=== PATIENT | female | born 1995 | race Caucasian/White ===

== ENCOUNTER 2017-12-17 07:26 | Emergency (ER) | payer OTHER ==
[~2017-12-17] VITALS: Ht 167.6 cm; Wt 68.2 kg
[2017-12-17 08:07] VITALS: BP 112/67
[2017-12-17] MEDS ORDERED: KETOROLAC TROMETHAMINE 10 MG TAB PO ONE (09:00)
[2017-12-17] MEDS ORDERED: ACYCLOVIR 15 GM OINT TP ONE (09:00)
[2017-12-17] MEDS ORDERED: TRAMADOL HCL 50 MG TAB PO ONE (09:00)
[2017-12-17] MEDS ORDERED: LIDOCAINE HCL 4% 50 ML BTL TOP ONE (09:00)
[2017-12-17] MEDS ORDERED: VALACYCLOVIR HCL 500 MG TAB PO ONE (09:00)
[2017-12-17 10:35] VITALS: BP 107/67
== END 2017-12-17 10:33 | disposition home or self-care (01) ==
LOC: ER 07:26
DX: A60.04 Herpesviral vulvovaginitis (principal)
CPT/HCPCS: 99283